=== PATIENT | female | born 1965 | race Caucasian/White ===

== ENCOUNTER 2016-11-11 05:28 | Day surgery (SDC) | payer BC ==
[~2016-11-11] VITALS: Ht 170.2 cm; Wt 68.0 kg
--- NOTE | ~2016-11-11 | O ---
[facility] [place] [address] OPERATIVE REPORT Name: DAGO OCHOA Room #: DEP [facility].#: [id number] Admission: 11/11/16 Attend Phys: Alejandro Rose MD Discharge: 11/11/16 Date of : 65 Report #: [id number] THIS REPORT FOR: //name// CC: Alejandro House DATE OF SERVICE: 11/11/2016 PREOPERATIVE DIAGNOSIS: Large left posterior shoulder lipoma measuring about 10 cm with multiple extensions. POSTOPERATIVE DIAGNOSIS: Large left posterior shoulder lipoma measuring about 10 cm with multiple extensions. PROCEDURES PERFORMED: Excision of large lipoma in the left shoulder/scapular area. SURGEON: Alejandro Rose M.D. ANESTHESIA: IV sedation and local 0.25% Marcaine. COMPLICATIONS: None. ESTIMATED BLOOD LOSS: 10 mL. DESCRIPTION OF OPERATION: With the patient in the right lateral decubitus position, the left posterior shoulder was isolated, prepped and draped in sterile fashion. A 0.25% Marcaine was used to anesthetize the skin and subcutaneous tissue. A transverse slightly oblique incision was made following the skin line. The incision is about 4-5 cm. The incision carried through the skin and subcutaneous tissue. Well-defined lipoma was found. This was dissected superior lateral and then inferiorly. The medial aspect was the last part to remove. The lipoma had multiple extension into the soft tissue and these were all carefully dissected out. The entire lipoma was felt to be removed. The lipoma with its extension measured about 10 cm. A #10 Fortunato drain was then left, brought out inferolaterally. Drain was sutured with 2-0 silk. Hemostasis obtained with cautery. Subcutaneous tissue was reapproximated with 3-0 PDS, skin was then closed with 4-0 PDS running subcuticular fashion. Dermabond, 4 x 4, OpSite used for dressing. The patient tolerated the procedure well. By: [id number] Alejandro Rose MD /nt
--- NOTE | ~2016-11-11 | S ---
[facility] [place] [address] SURGICAL PATH RPT PROCEDURE Name: SARITHA MAYO Room #: DEP [facility] M.R.#: [id number] Admission: 11/11/16 Date of : 65 Discharge: 11/11/16 Report #: [id number] Path Case #: [id number] PATHOLOGY REPORT COLLECTION DATE: 11/11/2016 RECEIVED DATE: 11/11/2016 SUBMITTING PHYS: Dr. Alejandro Rose OTHER PHYS: Dr. Alonzo House SPECIMEN(S) RECEIVED: A.Left shoulder mass * * * * * * * * * * * * FINAL DIAGNOSIS: "Left shoulder mass," excision: - Mature adipose tissue consistent with lipoma. (CLW:mgmai; d/t: 11/14/16) PATHOLOGIST: Purvi Ivory M.D. REPORT ELECTRONICALLY SIGNED BY: Purvi Ivory M.D. DATE/TIME: 11/14/2016 14:47 * * * * * * * * * * * * GROSS PATHOLOGY: Received in formalin labeled "Saritha Mayo and left shoulder mass," are multiple pieces of lobulated fibroadipose tissue measuring 10.7 x 9.8 x 3.7 cm in aggregate dimensions. Sectioning reveals homogeneous, bright yellow cut surfaces. Clinical Cytogeneticist Scientist sections are submitted in cassette A1. (TTL; 11/11/2016) CLINICAL HISTORY: Left shoulder posterior mass/lipoma INITIAL CPT CODE(S): 19955 Professional services performed by [facility] at [facility] [place] [address] Technical services performed by [facility] at [address] [place] [address], [facility] [address], [place] [address]. [facility] [address] [place] [address] SURGICAL PATH RPT PROCEDURE Name: SARITHA MAYO Room #: DEP [facility] Arnav#: [id number] Admission: 11/11/16 Date of : 65 Discharge: 11/11/16 Report #: [id number] Path Case #: [id number] [address] PHONE: [phone] DIRECTOR: Vitaly Short M.D. * * * END OF REPORT * * *
[~2016-11-11 05:28] MED LIST: FISH OIL 1,0001 EAC8 PO; WOMEN'S DAILY1 EACH PO
[2016-11-11 06:47] LABS: HEMATOCRIT 36.8 % (37.0-47.0); HEMOGLOBIN 12.5 gm/dL (12.0-15.0)
[2016-11-11 07:00] VITALS: BP 106/67
[2016-11-11] MEDS ORDERED: NORCO 5-325 TA1 EACH PO (09:39)
[2016-11-11 09:51] VITALS: BP 106/67
== END 2016-11-11 10:20 | disposition home or self-care (01) ==
LOC: TBA 05:28 → OR 05:28 → TBA 05:31 → OR 10:20
PROVIDERS: Surgery
DX: D17.22 Benign lipomatous neoplasm of skin and subcutaneous tissue of left arm (principal); J45.909 Unspecified asthma, uncomplicated; Z90.710 Acquired absence of both cervix and uterus; Z98.890 Other specified postprocedural states
CPT/HCPCS: 50010; 50101; 50331; 50386; 54118; 56525; 56527; 62110; 62900; 70005